=== PATIENT | female | born 1995 | race Caucasian/White ===

== ENCOUNTER 2023-04-06 17:39 | Inpatient (IN) ==
[2023-04-06] MEDS ORDERED: Dinoprostone 10 MG VAG.SUPP VAGINAL ONE (18:45)
[2023-04-06] MEDS ORDERED: Lidocaine 1% VIAL 10 MG/ML 30 ML VIAL INJ PRN (18:53)
[2023-04-06] MEDS ORDERED: Buffered Lidocaine 1% SYRIN 1 ml INTRADERM ONE (18:53)
[2023-04-06] MEDS ORDERED: Promethazine INJ(RESTRICTED) 25 MG/ML 1 ml VIAL IV PRN (18:53)
[2023-04-06] MEDS ORDERED: Penicillin G Potassium IV 5,000,000 UNITS in NS 0.9% 100 ml BAG 100 ML IVPB ONE (18:53)
[2023-04-06] MEDS ORDERED: Lactated Ringers 1000 ml BAG 1,000 ML IV ONE (18:53)
[2023-04-06 20:20] LABS: ALT 16 U/L (7-52); Albumin 3.2 g/dL (3.2-5.2); Albumin/Globulin Ratio 1.3 (1-3); Alkaline Phosphatase 156 U/L (35-149); Anion Gap 6 mmol/L (2-16); Blood Urea Nitrogen 12 mg/dL (6-24); CO2 Carbon Dioxide 21 mmol/L (22-32); Calcium 8.7 mg/dL (8.6-10.3); Chloride 107 mmol/L (101-111); Creatinine, Serum 0.65 mg/dL (0.51-0.95); Globulin 2.5 g/dL (2-4); Glucose 81 mg/dL (70-100); Sodium 134 mmol/L (135-145); Total Bilirubin 0.9 mg/dL (0.2-1.0); Total Protein 5.7 g/dL (6.4-8.9); eGFR CKD-EPI 122.2 (>60)
[2023-04-06 20:29] LABS: ABS Basophils 0.3 10^3/uL (0.0-0.1); ABS Eosinophils 0.2 10^3/uL (0.0-0.5); ABS Lymphocytes 0.9 10^3/uL (1.0-4.8); ABS Neutrophils 8.7 10^3/uL (1.5-7.6); Anisocytosis 3+; Eosinophil % 1.9 %; Hematocrit 26.6 % (35-45); Hemoglobin 8.3 g/dL (11.5-14.3); Hypochromasia 2+; Lymphocyte % 8.2 %; Macrocytosis 2+; Mean Corpuscular Hemoglobin 22.1 pg (27-33); Mean Corpuscular Hgb Conc 31.1 g/dL (31-36); Mean Corpuscular Volume 71.1 fL (80-97); Mean Platelet Volume 10.6 fL (7.5-11.2); Microcytosis 3+; Nucleated Red Blood Cells % 12.5 %/100WBC (0.0-0.8); Platelet Count 180 10^3/uL (150-450); Polychromasia 2+; Red Blood Count 3.74 10^6/uL (3.63-4.92); Red Cell Distribution Width 16.9 % (12-17); Sickle Cells 1+; Target Cells 3+; White Blood Count 11.2 10^3/uL (3.8-11.8)
[2023-04-07] MEDS: Lactated Ringers 1000 ml BAG 1,000 ML IV SCH ×3 (08:03→21:15)
[2023-04-07 08:38] LABS: Uric Acid 5.6 mg/dL (2.3-6.6)
[2023-04-07 12:31] LABS: Urine Appearance Clear; Urine Bilirubin Negative (Negative); Urine Blood Negative (Negative); Urine Color Yellow; Urine Glucose Negative (Negative); Urine Ketones Negative (Negative); Urine Nitrite Negative (Negative); Urine Protein 2+(100 mg/dL) (Negative); Urine Specific Gravity 1.009 (1.002-1.030); Urine Urobilinogen Negative (Negative)
[2023-04-07 12:48] LABS: Urine Bacteria Absent (Absent); Urine Red Blood Cell Absent (Absent); Urine Squamous Epithelial Cell Present (Absent); Urine White Blood Cell Absent (Absent)
[2023-04-07 13:10] LABS: Urine Benzodiazepine Screen None Detected (None Detect); Urine Cannabinoids Screen None Detected (None Detect); Urine Opiates Screen None Detected (None Detect)
[2023-04-07] MEDS ORDERED: Oxytocin in LR 20,000 MILLI.UNIT/1,000 ML BAG IV SCH (14:00)
[2023-04-07] MEDS ORDERED: Buffered Lidocaine 1% SYRIN 1 ml ONE (17:22)
[2023-04-07] MEDS ORDERED: Lidocaine 1.5% EPI 1:200,000 30 ML SDV ONE (21:10)
[2023-04-07] MEDS ORDERED: OBEPIDURAL (200 ML) 200 ML EPIDURAL ONE (21:10)
[2023-04-07] MEDS ORDERED: fentaNYL 100 mcg/2 ml 50 MCG/ML VIAL ONE (21:17)
[2023-04-07] MEDS ORDERED: Phenylephrine 40 mcg/mL 10mL (400mcg) SYRINGE IV PUSH PRN ×2 (22:50)
[2023-04-07] MEDS ORDERED: Lactated Ringers 1000 ml BAG 1,000 ML IV ONE (22:50)
[2023-04-07] MEDS ORDERED: Sodium Citrate/Citric Acid LIQ 15 ML UDC PO PRN (22:50)
[2023-04-07] MEDS ORDERED: Lactated Ringers 1000 ml BAG 1,000 ML IV SCH (23:00)
[2023-04-07] MEDS ORDERED: OBEPIDURAL (200 ML) 200 ML EPIDURAL SCH (23:00)
[2023-04-08 00:52] LABS: Urine Appearance Cloudy; Urine Bilirubin Negative (Negative); Urine Blood 2+ (Negative); Urine Color Yellow; Urine Glucose Negative (Negative); Urine Ketones Negative (Negative); Urine Nitrite Negative (Negative); Urine Protein 3+(>=500 mg/dL) (Negative); Urine Specific Gravity 1.016 (1.002-1.030); Urine Urobilinogen Negative (Negative)
[2023-04-08 01:07] LABS: Urine Bacteria Absent (Absent); Urine Red Blood Cell 3+(>10/hpf) (Absent); Urine Renal Epithelial Cells Present (Absent); Urine Squamous Epithelial Cell Present (Absent); Urine Transitional Epithelial Present (Absent); Urine White Blood Cell Trace(0-5/hpf) (Absent)
[2023-04-08] MEDS ORDERED: Penicillin G Potassium IV 3,000,000 UNITS in NS 0.9% 100 ml BAG 100 ML IVPB SCH (02:00)
[2023-04-08] MEDS ORDERED: Oxytocin 10 UNITS/ML 1 ML VIAL IM PRN (06:01)
[2023-04-08] MEDS ORDERED: Lactated Ringers 1000 ml BAG 1,000 ML IV SCH (07:00)
[2023-04-08] MEDS: Witch Hazel PAD JAR TOPICAL PRN ×2 (07:47→20:37)
[2023-04-08] MEDS: Dibucaine 1% OINT 28.35 GM TUBE PR PRN ×2 (07:47→20:37)
[2023-04-08] MEDS ORDERED: Phenylephrine 40 mcg/mL 10mL (400mcg) SYRINGE ONE (12:45)
[2023-04-09 08:08] LABS: Hematocrit 25.8 % (35-45); Mean Corpuscular Hemoglobin 22.5 pg (27-33); Mean Corpuscular Hgb Conc 31.1 g/dL (31-36); Mean Corpuscular Volume 72.3 fL (80-97); Red Blood Count 3.57 10^6/uL (3.63-4.92); Red Cell Distribution Width 17.7 % (12-17); White Blood Count 20.6 10^3/uL (3.8-11.8)
[2023-04-09 09:43] LABS: ABS Basophils 0.4 10^3/uL (0.0-0.1); ABS Eosinophils 0.2 10^3/uL (0.0-0.5); ABS Lymphocytes 0.9 10^3/uL (1.0-4.8); ABS Monocytes 1.6 10^3/uL (0.0-0.9); ABS Neutrophils 17.5 10^3/uL (1.5-7.6); ABS Nucleated RBC 1.28 10^3/ul; Anisocytosis 2+; Basophilic Stippling 1+; Eosinophil % 0.9 %; Hypochromasia 2+; Lymphocyte % 4.6 %; Mean Platelet Volume 10.8 fL (7.5-11.2); Microcytosis 2+; Nucleated Red Blood Cells % 6.2 %/100WBC (0.0-0.8); Platelet Count 172 10^3/uL (150-450); Polychromasia 2+; Target Cells 2+
[2023-04-10 07:29] VITALS: BP 131/80
[2023-04-10] MEDS: Witch Hazel PAD JAR TOPICAL PRN (14:02)
[2023-04-10] MEDS: Dibucaine 1% OINT 28.35 GM TUBE PR PRN (14:02)
== END 2023-04-10 14:35 | disposition home or self-care (01) | DRG 807 ==
LOC: MCHOBOUT 17:39 → MCHOB 17:51
PROVIDERS: ADMIT Advanced Practice Midwife; ATTEND Registered Nurse